=== PATIENT | female | born 1975 | race Caucasian/White ===

== ENCOUNTER 2018-08-08 07:33 | Emergency (ER) | payer OTHER ==
[~2018-08-08] VITALS: Ht 162.6 cm; Wt 85.3 kg
[~2018-08-08 07:33] MED LIST: ACET-787 PO; TOPI50TA PO; TRAM50TA1 PO; TRAZ-307 PO
[2018-08-08 07:43] VITALS: BP 139/84
--- NOTE | 2018-08-08 08:10 | NUR ---
PATIENT PRESENTS TO ED WITH LEFT ANKLE PAIN X 1 WEEK. PT DENIES TRAUMA/INJURY. +SWELLING, NO BRUISING, REDNESS NOR DEFORMITY NOTED. +ROM. PATIENT STATES PAIN OF 8/10 ONLY WHEN AMBULATING. PATIENT POSITIONED FOR COMFORT; HOB ELEVATED; BEDRAILS UP X1; BED DOWN. PENDING MD EVALUATION.
--- NOTE | 2018-08-08 08:32 | NUR ---
X-Ray at bedside.
[2018-08-08 09:05] VITALS: BP 124/78
--- NOTE | 2018-08-08 09:06 | NUR ---
Patient discharged with v/s stable. Written and verbal after care instructions given and explained. Patient alert, oriented and verbalized understanding of instructions. Ambulatory using with crutches. All questions addressed prior to discharge. ID band removed. Patient advised to follow up with PMD. Rx of Naprosyn given. Patient educated on indication of medication including possible reaction and side effects. Opportunity to ask questions provided and answered.
== END 2018-08-08 09:05 | disposition home or self-care (01) ==
LOC: MED 07:33
DX: S93.402A Sprain of unspecified ligament of left ankle, initial encounter (principal); J45.909 Unspecified asthma, uncomplicated; Z79.899 Other long term (current) drug therapy; X58.XXXA Exposure to other specified factors, initial encounter; Y93.89 Activity, other specified; Y92.89 Other specified places as the place of occurrence of the external cause; Y99.0 Civilian activity done for income or pay
CPT/HCPCS: 73610; 99283; Q0092

== ENCOUNTER 2019-07-18 18:30 | Emergency (ER) | payer OTHER ==
[~2019-07-18] VITALS: Ht 162.6 cm; Wt 86.2 kg
[2019-07-18 18:38] VITALS: BP 165/93
[2019-07-18 18:50] VITALS: BP 165/93
== END 2019-07-18 18:50 | disposition home or self-care (01) ==
LOC: MED 18:30
DX: H10.9 Unspecified conjunctivitis (principal); J45.909 Unspecified asthma, uncomplicated; Z98.890 Other specified postprocedural states; Z79.899 Other long term (current) drug therapy
CPT/HCPCS: 99283

== ENCOUNTER 2019-08-26 07:49 | Emergency (ER) | payer OTHER ==
[~2019-08-26] VITALS: Ht 162.6 cm; Wt 86.2 kg
[2019-08-26 07:57] VITALS: BP 123/100
[2019-08-26] MEDS ORDERED: NACL 0.9% 1,000 ML IV SCH (08:18)
[2019-08-26 08:50] LABS: ANION GAP 14.9 (8-16); BASOPHILS # (AUTO) 0.1 K/uL (0.00-0.22); BASOPHILS % (AUTO) 0.8 % (0.0-2.0); CARBON DIOXIDE 26.5 mmol/L (21-32); CREATININE 0.9 mg/dL (0.6-1.3); EOSINOPHILS # (AUTO) 0.2 K/uL (0-0.4); EOSINOPHILS % (AUTO) 1.2 % (0.0-4.0); HEMOGLOBIN 8.8 g/dL (12.0-16.0); LYMPHOCYTES # (AUTO) 2.9 K/uL (2.5-16.5); LYMPHOCYTES % (AUTO) 20.8 % (20.5-51.1); MEAN CORPUSCULAR HEMOGLOBIN 19 pg (27-31); MEAN CORPUSCULAR HGB CONC 30 g/dL (33-37); MEAN CORPUSCULAR VOLUME 62.2 fL (80-94); MONOCYTES # (AUTO) 0.7 K/uL (0.8-1.0); MONOCYTES % (AUTO) 4.7 % (1.7-9.3); NEUTROPHILS % (AUTO) 72.5 % (42.2-75.2); PLATELET COUNT (AUTO) 479 K/uL (140-450); POTASSIUM 3.4 mmol/L (3.5-5.1); RED BLOOD CELL COUNT(AUTO) 4.67 MIL/uL (4.20-5.40); RED CELL DISTRIBUTION WIDTH 18.5 % (11.6-13.7); WHITE BLOOD COUNT (AUTO) 13.8 K/uL (4.8-10.8)
[2019-08-26 09:04] LABS: ALBUMIN 3.3 g/dL (3.4-5.0); THYROID STIMULATING HORMONE 1.92 uIU/mL (0.34-3.74); TOTAL BILIRUBIN 0.3 mg/dL (0.0-1.0)
[2019-08-26 09:57] VITALS: BP 127/77
== END 2019-08-26 09:57 | disposition home or self-care (01) ==
LOC: MED 07:49
DX: N93.9 Abnormal uterine and vaginal bleeding, unspecified (principal); D25.9 Leiomyoma of uterus, unspecified; D64.9 Anemia, unspecified; J45.909 Unspecified asthma, uncomplicated; Z79.899 Other long term (current) drug therapy; Z98.890 Other specified postprocedural states; Z98.51 Tubal ligation status
CPT/HCPCS: 36415; 76830; 80053; 81002; 81025; 84443; 85025; 86886; 86900; 86901; 99284; J7030; Q0092

== ENCOUNTER 2020-09-06 10:18 | Emergency (ER) | payer OTHER ==
[~2020-09-06] VITALS: Ht 162.6 cm; Wt 81.2 kg
[~2020-09-06 10:18] MED LIST changes: -ACET-787 PO; +HYDR-5191 PO
[2020-09-06 10:27] VITALS: BP 91/58
--- NOTE | 2020-09-06 10:31 | NUR ---
PT taken to bed 06 via W/C.
--- NOTE | 2020-09-06 10:39 | NUR ---
44/F presents to ED with c/o left ankle pain since yesterday. Patient states after she got off work yesterday she began experiencing left ankle pain and swelling. Patient denies injury or trauma, states she stands on her feet for long periods of time at work and she thinks it may be related. Patient states when she got home last night she elevated her foot and took Tylenol with some relief. Left ankle appears swollen, tender to touch, states pain worsens with ambulation and flexion. Patient wheel chair assisted to bed.
--- NOTE | 2020-09-06 10:42 | NUR ---
Rad at bedside.
[2020-09-06] MEDS ORDERED: NAPR-54 PO (11:23)
--- NOTE | 2020-09-06 11:36 | NUR ---
PT PLACED IN LEFT ANKLE AIR SPLINT, CMS WNL BEFORE AND AFTER. ERMD NOTIFIED
[2020-09-06 11:40] VITALS: BP 147/82
--- NOTE | 2020-09-06 11:40 | NUR ---
Patient discharged with v/s stable. Written and verbal after care instructions given and explained. Patient alert, oriented and verbalized understanding of instructions. Ambulatory with steady gait. All questions addressed prior to discharge. ID band removed. Patient advised to follow up with PMD. Rx of Naproxen electronically sent to [facility]. Patient educated on indication of medication including possible reaction and side effects. Opportunity to ask questions provided and answered.
== END 2020-09-06 11:40 | disposition home or self-care (01) ==
LOC: MED 10:18
DX: S93.402A Sprain of unspecified ligament of left ankle, initial encounter (principal); J45.909 Unspecified asthma, uncomplicated; Z79.899 Other long term (current) drug therapy; X58.XXXA Exposure to other specified factors, initial encounter; Y93.89 Activity, other specified; Y92.89 Other specified places as the place of occurrence of the external cause; Y99.8 Other external cause status
CPT/HCPCS: 29515; 73610; 99283

== ENCOUNTER 2021-01-11 10:45 | Emergency (ER) | payer OTHER ==
[~2021-01-11] VITALS: Ht 162.6 cm; Wt 77.1 kg
[~2021-01-11 10:45] MED LIST changes: +NAPR-54 PO
[2021-01-11 11:08] VITALS: BP 140/100
--- NOTE | 2021-01-11 11:11 | NUR ---
TENT 1
--- NOTE | 2021-01-11 11:12 | NUR ---
BIB SELF C/O STUFFY NOSE, 8/10 MARRERO, SORE THROAT, CHILLS, COUGH X 4 DAYS. PMH: C SECTION, LEFT WRIST SURGERY
--- NOTE | 2021-01-11 12:20 | NUR ---
COVID PCR SWAB DONE.
[2021-01-11 12:22] VITALS: BP 140/100
--- NOTE | 2021-01-11 12:22 | NUR ---
Patient discharged with v/s stable. Written and verbal after care instructions given and explained. Patient verbalized understanding. Ambulatory with steady gait. All questions addressed prior to discharge. Advised to follow up with PMD.
== END 2021-01-11 12:22 | disposition home or self-care (01) ==
LOC: MED 10:45
DX: B34.9 Viral infection, unspecified (principal); Z20.822 Contact with and (suspected) exposure to COVID-19; R01.1 Cardiac murmur, unspecified; J45.909 Unspecified asthma, uncomplicated
CPT/HCPCS: 99283; U0003

== ENCOUNTER 2022-03-22 13:51 | Emergency (ER) | payer OTHER ==
[~2022-03-22] VITALS: Ht 162.6 cm; Wt 91.2 kg
[~2022-03-22 13:51] MED LIST changes: +TRAM-748 PO; -TRAM50TA1 PO
[2022-03-22 14:07] VITALS: BP 145/104
--- NOTE | 2022-03-22 14:10 | NUR ---
46/F WALKED IN C/O LEFT ANKLE PAIN ONSET LAST NIGHT. PT REPORTS PAIN SHARP 9/10. DENIES FALL OR TRAUMA. MILD SWELLING NOTED TO THE LEFT ANKLE. PT STATES PAIN GETS WORSE WHEN BEARING WEIGHT. AAO4, AMBULATORY, VITAL STABLE, NO ACUTE DISTRESS NOTED
[2022-03-22 14:47] LABS: BASOPHILS # (AUTO) 0.1 K/uL (0.00-0.22); BASOPHILS % (AUTO) 0.9 % (0.0-2.0); EOSINOPHILS # (AUTO) 0.1 K/uL (0-0.4); EOSINOPHILS % (AUTO) 1.6 % (0.0-4.0); HEMATOCRIT 41.2 % (36-48); HEMOGLOBIN 13.5 g/dL (12.0-16.0); LYMPHOCYTES # (AUTO) 2.8 K/uL (2.5-16.5); LYMPHOCYTES % (AUTO) 34.9 % (20.5-51.1); MEAN CORPUSCULAR HEMOGLOBIN 26 pg (27-31); MEAN CORPUSCULAR HGB CONC 33 g/dL (33-37); MEAN CORPUSCULAR VOLUME 78.3 fL (80-94); MONOCYTES # (AUTO) 0.5 K/uL (0.8-1.0); MONOCYTES % (AUTO) 6.6 % (1.7-9.3); NEUTROPHILS # (AUTO) 4.4 K/uL (1.8-7.7); PLATELET COUNT (AUTO) 309 K/uL (140-450); RED BLOOD CELL COUNT(AUTO) 5.26 MIL/uL (4.20-5.40); RED CELL DISTRIBUTION WIDTH 16.8 % (11.6-13.7); WHITE BLOOD COUNT (AUTO) 7.9 K/uL (4.8-10.8)
[2022-03-22 15:08] LABS: ALBUMIN 3.7 g/dL (3.4-5.0); CARBON DIOXIDE 28.9 mmol/L (21-32); CREATININE 0.8 mg/dL (0.6-1.3); POTASSIUM 3.9 mmol/L (3.5-5.1); TOTAL BILIRUBIN 0.2 mg/dL (0.0-1.0)
[2022-03-22] MEDS ORDERED: IBUP-1842 PO (15:42)
--- NOTE | 2022-03-22 15:55 | NUR ---
RON Donohue discharged patient. atient discharged with v/s stable. Written and verbal after care instructions given. Patient alert, oriented and verbalized understanding of instructions. Ambulatory with steady gait. All questions addressed prior to discharge. ID band removed. Patient advised to follow up with PMD. Rx of Ibuprofen given. Opportunity to ask questions provided and answered. WORK NOTE HANDED TO PATIENT.
--- NOTE | 2022-03-22 15:56 | NUR ---
The patient's care was reviewed and supervised by Fernanda Sneed, RN, RN.
== END 2022-03-22 15:55 | disposition home or self-care (01) ==
LOC: MED 13:51
DX: M25.572 Pain in left ankle and joints of left foot (principal); Z79.899 Other long term (current) drug therapy
CPT/HCPCS: 36415; 73610; 80053; 84550; 85025; 99284

== ENCOUNTER 2022-12-06 15:00 | Emergency (ER) | payer BC, OTHER ==
[~2022-12-06] VITALS: Ht 165.1 cm; Wt 90.7 kg
[~2022-12-06 15:00] MED LIST changes: +IBUP-1842 PO
[2022-12-06 15:33] VITALS: BP 137/91; PULSE 74; RESP 20; TEMP 98; O2SAT 99
[2022-12-06] MEDS ORDERED: GABA100C PO (16:18)
[2022-12-06 16:21] VITALS: BP 137/91; PULSE 74; RESP 20; TEMP 98; O2SAT 99
== END 2022-12-06 16:21 | disposition home or self-care (01) ==
LOC: MED 15:00
DX: G57.83 Other specified mononeuropathies of bilateral lower limbs (principal); Z79.899 Other long term (current) drug therapy
CPT/HCPCS: 99283

== ENCOUNTER 2023-05-27 16:44 | Emergency (ER) | payer BC, OTHER ==
[~2023-05-27] VITALS: Ht 165.1 cm; Wt 94.9 kg
[~2023-05-27 16:44] MED LIST changes: +GABA100C PO
[2023-05-27 16:54] VITALS: BP 149/97; PULSE 85; RESP 16; TEMP 97.1; O2SAT 98
[2023-05-27 17:33] LABS: BASOPHILS # (AUTO) 0.1 K/uL (0.00-0.22); BASOPHILS % (AUTO) 0.6 % (0.0-2.0); EOSINOPHILS # (AUTO) 0.1 K/uL (0-0.4); EOSINOPHILS % (AUTO) 1.5 % (0.0-4.0); HEMATOCRIT 46.5 % (36-48); LYMPHOCYTES # (AUTO) 3.4 K/uL (2.5-16.5); LYMPHOCYTES % (AUTO) 36.6 % (20.5-51.1); MEAN CORPUSCULAR HEMOGLOBIN 30 pg (27-31); MEAN CORPUSCULAR HGB CONC 34 g/dL (33-37); MONOCYTES # (AUTO) 0.5 K/uL (0.8-1.0); MONOCYTES % (AUTO) 4.9 % (1.7-9.3); NEUTROPHILS # (AUTO) 5.2 K/uL (1.8-7.7); NEUTROPHILS % (AUTO) 56.4 % (42.2-75.2); PLATELET COUNT (AUTO) 262 K/uL (140-450); RED BLOOD CELL COUNT(AUTO) 5.41 MIL/uL (4.20-5.40); WHITE BLOOD COUNT (AUTO) 9.2 K/uL (4.8-10.8)
[2023-05-27 17:57] LABS: ANION GAP 11.1 (8-16); CALCIUM 9.6 mg/dL (8.5-10.1); CARBON DIOXIDE 27.6 mmol/L (21-32); CREATININE 0.8 mg/dL (0.6-1.3); POTASSIUM 3.7 mmol/L (3.5-5.1)
[2023-05-27] MEDS ORDERED: MECL-303 PO (22:00)
[2023-05-27] MEDS: MECLIZINE 25 MG TAB PO ONE (22:19)
[2023-05-27 22:20] VITALS: BP 132/83; PULSE 67; RESP 18; TEMP 98.1; O2SAT 98
== END 2023-05-27 22:20 | disposition home or self-care (01) ==
LOC: MED 16:44
DX: H81.392 Other peripheral vertigo, left ear (principal); G43.909 Migraine, unspecified, not intractable, without status migrainosus; Z79.899 Other long term (current) drug therapy
CPT/HCPCS: 36415; 70450; 70496; 70498; 80048; 85025; 93005; 99285; J8597; Q9967

== ENCOUNTER 2023-09-26 08:47 | Emergency (ER) | payer BC, OTHER ==
[~2023-09-26 08:47] MED LIST changes: +HYDR-5071 PO; -HYDR-5191 PO; +MECL-303 PO; +NAPR-337 PO; -NAPR-54 PO
== END 2023-09-26 08:54 | disposition left against medical advice (07) ==
LOC: MED 08:47
DX: Z00.8 Encounter for other general examination (principal); Z53.21 Procedure and treatment not carried out due to patient leaving prior to being seen by health care provider; W18.30XA Fall on same level, unspecified, initial encounter; Y93.89 Activity, other specified; Y92.89 Other specified places as the place of occurrence of the external cause; Y99.8 Other external cause status

== ENCOUNTER 2024-01-23 06:20 | Emergency (ER) | payer BC, OTHER ==
[~2024-01-23] VITALS: Ht 162.6 cm; Wt 94.3 kg
[2024-01-23 06:28] VITALS: BP 176/102; PULSE 69; RESP 18; TEMP 98; O2SAT 98
[2024-01-23] MEDS: KETOROLAC 60 MG/2 ML VIAL IM ONE (06:53)
[2024-01-23 07:07] LABS: BILIRUBIN,URINE NEGATIVE (NEGATIVE); COLOR,URINE YELLOW (YELLOW); LEUKOCYTE ESTERASE ,URINE NEGATIVE (NEGATIVE); NITRITE, URINE NEGATIVE (NEGATIVE); PH,URINE 5.5 (5.0-9.0); PROTEIN,URINE NEGATIVE (NEGATIVE); UGLUCOSE NEGATIVE (NEGATIVE); UROBILINOGEN,URINE 0.2 EU/dL (0.2 - 1)
[2024-01-23 07:51] LABS: BACTERIA,URINE FEW /HPF (None Seen); SQUAMOUS EPITHELIAL CELL,UR 4-10 (MOD) /LPF (0-3 (FEW))
[2024-01-23 07:53] LABS: BLOOD, URINE TRACE (NEGATIVE); RBC,URINE 0-5 /HPF (0-5); WBC,URINE 0-5 /HPF (0-5)
[2024-01-23 07:54] LABS: APPEARANCE,URINE SLIGHTLY HAZY (CLEAR)
[2024-01-23] MEDS ORDERED: LID5T TP (08:12)
[2024-01-23] MEDS ORDERED: NAPR-1704 PO (08:12)
[2024-01-23 08:32] VITALS: BP 134/86; PULSE 69; RESP 18; TEMP 98; O2SAT 97
== END 2024-01-23 08:32 | disposition home or self-care (01) ==
LOC: MED 06:20
DX: M54.50 Low back pain, unspecified (principal); R42 Dizziness and giddiness; Z98.890 Other specified postprocedural states; Z79.899 Other long term (current) drug therapy
CPT/HCPCS: 81001; 93005; 96372; 99284; J1885